=== PATIENT | male | born 1980 | race Caucasian/White ===

== ENCOUNTER 2017-10-06 18:32 | Emergency (ER) | payer OTHER ==
[2017-10-06] MEDS: KETOROLAC 30 MG INJ IM (21:32)
== END 2017-10-06 23:20 | disposition home or self-care (01) ==
LOC: FTE 18:32
DX: S16.1XXA Strain of muscle, fascia and tendon at neck level, initial encounter (principal); R40.2412 Glasgow coma scale score 13-15, at arrival to emergency department; X58.XXXA Exposure to other specified factors, initial encounter; Y92.9 Unspecified place or not applicable
CPT/HCPCS: 72040; 96372; 99284-25

== ENCOUNTER 2017-10-15 14:02 | Emergency (ER) | payer OTHER | END 2017-10-15 17:06 | disposition home or self-care (01) | LOC: FTE 14:02 | DX: S63.654A Sprain of metacarpophalangeal joint of right ring finger, initial encounter (principal); S63.656A Sprain of metacarpophalangeal joint of right little finger, initial encounter; X58.XXXA Exposure to other specified factors, initial encounter; Y92.9 Unspecified place or not applicable | CPT/HCPCS: 73200; 99284-25 ==